=== PATIENT | female | born 1980 | race Caucasian/White ===

== ENCOUNTER 2017-03-15 22:14 | Emergency (ER) | payer BC ==
[~2017-03-15] VITALS: Ht 177.8 cm; Wt 99.8 kg
[2017-03-15 22:47] LABS: BASO # 0.1 x10^3/uL (0.0-0.2); BASO % 1 % (0-3); EOS % 0 % (0-3); HEMATOCRIT 44.2 % (36.0-47.0); HEMOGLOBIN 15.3 g/dL (12.0-15.5); LYMPH # 2.7 x10^3/uL (1.0-4.8); LYMPH % 29 % (24-48); MEAN CORPUSCULAR HEMOGLOBIN 33 pg (25-35); MEAN CORPUSCULAR HGB CONC 35 g/dL (31-37); MEAN CORPUSCULAR VOLUME 96 fL (79-100); MONO % 5 % (0-9); NEUT % 65 % (31-73); PLATELET COUNT 305 x10^3/uL (140-400); RED BLOOD COUNT 4.61 x10^6/uL (3.50-5.40); RED CELL DISTRIBUTION WIDTH 12.2 % (11.5-14.5); WHITE BLOOD COUNT 9.4 x10^3/uL (4.0-11.0)
[2017-03-15 22:58] LABS: CALCIUM 10.2 mg/dL (8.5-10.1); GFR 63.1; POTASSIUM 3.2 mmol/L (3.5-5.1)
[2017-03-15 23:03] LABS: ALBUMIN/GLOBULIN RATIO 1.1 (1.0-1.7); TOTAL BILIRUBIN 0.4 mg/dL (0.2-1.0); TOTAL PROTEIN 7.8 g/dL (6.4-8.2)
[2017-03-15] MEDS ORDERED: CONTRAST GIVEN MC PRN (23:15)
[2017-03-15] MEDS ORDERED: IOHEXOL 300 MG/ML 75 ML VIAL ONE (23:21)
[2017-03-15] MEDS ORDERED: IOHEXOL 300 MG/ML 75 ML VIAL IV ONE (23:30)
[2017-03-15] MEDS ORDERED: IV NORMAL SALINE 1000ML BAG 1,000 ML IV ONE ×2 (23:30)
--- NOTE | 2017-03-15 23:35 | RAD ---
Chest CTA History: Tachycardia Technique: After bolus of intravenous contrast, CT imaging was performed of the chest. Multiplanar reconstruction images to include MIP reconstruction images are submitted. Exposure: One or more of the following individualized dose reduction techniques were utilized for this examination: 1. Automated exposure control 2. Adjustment of the mA and/or kV according to patient size 3. Use of iterative reconstruction technique. Contrast: 75 cc Omnipaque 300 Comparison: None Findings: No central pulmonary embolism is identified, limited evaluation of more distal branches due to poor contrast opacification during exam. There is no pneumothorax or abnormal pericardial or pleural fluid. There is no lobar infiltrate. Major airways are patent. No significant lymphadenopathy is identified of the chest. Thoracic aortic caliber is within normal limits without intraluminal flap. Impression: 1. No central pulmonary embolism is identified, limited evaluation of more distal branches on this exam. Electronically signed by: Puma Giang MD (03/15/2017 11:32 PM) [facility]
[2017-03-16] VITALS: BP 145/91
--- NOTE | 2017-03-16 00:10 | PHYS DOC ---
Past Medical History Past Medical History: Hypothyroid Past Surgical History: Other Additional Past Surgical Histo: LEAP Alcohol Use: Occasionally Drug Use: None Adult General Chief Complaint Chief Complaint: Palpitations HPI HPI 36-year-old female with a history of hypothyroidism now presents to the emergency department complaining of palpitations. Patient states she has not taken any extra doses of her Synthroid in fact she missed her Synthroid dose today. She denies chest pain or pleuritic pain. No productive cough or fever. His no history of arrhythmia or resting tachycardia. Patient has never had a cardiac problem. She did take a supplement this afternoon which included amino acids with a large dose of caffeine. Other than coffee in the morning patient normally does not think any caffeine for the rest of the day. She is otherwise asymptomatic and has not been ill. Review of Systems Review of Systems Constitutional: Denies fever or chills [] Eyes: Denies change in visual acuity, redness, or eye pain [] HENT: Denies nasal congestion or sore throat [] Respiratory: Denies cough or shortness of breath [] Cardiovascular: No additional information not addressed in HPI [] GI: Denies abdominal pain, nausea, vomiting, bloody stools or diarrhea [] : Denies dysuria or hematuria [] Musculoskeletal: Denies back pain or joint pain [] Integument: Denies rash or skin lesions [] Neurologic: Denies headache, focal weakness or sensory changes [] Endocrine: Denies polyuria or polydipsia [] Current Medications Current Medications Current Medications Medications (Trade) Dose Ordered Sig/Rachana Start Time Stop Time Status Last Admin Dose Admin Info (Do NOT chart on this entry -- for MONITORING) 1 each PRN DAILY PRN 03/15/17 23:15 03/17/17 23:14 Iohexol (Omnipaque 300 Mg/ml) 75 ml STK-MED ONCE 03/15/17 23:21 03/15/17 23:22 DC Potassium Chloride (Klor-Con) 40 meq 1X ONCE 03/16/17 00:30 03/16/17 00:31 Sodium Chloride 1,000 ml @ 1,000 mls/hr 1X ONCE 03/15/17 23:30 03/16/17 00:29 03/15/17 23:08 1,000 MLS/HR Allergies Allergies Allergies Coded Allergies Type Severity Reaction Last Updated Verified No Known Drug Allergies 03/15/17 No Physical Exam Physical Exam Well-appearing female no acute distress mild tachycardia clear lungs regular rate and rhythm benign exam Constitutional: Well developed, well nourished, no acute distress, non-toxic appearance. [] HENT: Normocephalic, atraumatic, bilateral external ears normal, oropharynx moist, no oral exudates, nose normal. [] Eyes: PERRLA, EOMI, conjunctiva normal, no discharge. [] Neck: Normal range of motion, no tenderness, supple, no stridor. [] Cardiovascular:Heart rate regular rhythm, no murmur [] Lungs & Thorax: Bilateral breath sounds clear to auscultation [] Abdomen: Bowel sounds normal, soft, no tenderness, no masses, no pulsatile masses. [] Skin: Warm, dry, no erythema, no rash. [] Back: No tenderness, no CVA tenderness. [] Extremities: No tenderness, no cyanosis, no clubbing, ROM intact, no edema. [] Neurologic: Alert and oriented X 3, normal motor function, normal sensory function, no focal deficits noted. [] Psychologic: Affect normal, judgement normal, mood normal. [] Current Patient Data Vital Signs Vital Signs Date Time Temp Pulse Resp B/P (MAP) Pulse Ox O2 Delivery O2 Flow Rate FiO2 03/15/17 22:30 99.3 116 18 158/104 (122) 97 Room Air 99.3 Lab Values Laboratory Tests Test 03/15/17 22:38 White Blood Count 9.4 x10^3/uL (4.0-11.0) Red Blood Count 4.61 x10^6/uL (3.50-5.40) Hemoglobin 15.3 g/dL (12.0-15.5) Hematocrit 44.2 % (36.0-47.0) Mean Corpuscular Volume 96 fL (79-100) Mean Corpuscular Hemoglobin 33 pg (25-35) Mean Corpuscular Hemoglobin Concent 35 g/dL (31-37) Red Cell Distribution Width 12.2 % (11.5-14.5) Platelet Count 305 x10^3/uL (140-400) Neutrophils (%) (Auto) 65 % (31-73) Lymphocytes (%) (Auto) 29 % (24-48) Monocytes (%) (Auto) 5 % (0-9) Eosinophils (%) (Auto) 0 % (0-3) Basophils (%) (Auto) 1 % (0-3) Neutrophils # (Auto) 6.1 x10^3uL (1.8-7.7) Lymphocytes # (Auto) 2.7 x10^3/uL (1.0-4.8) Monocytes # (Auto) 0.4 x10^3/uL (0.0-1.1) Eosinophils # (Auto) 0.0 x10^3/uL (0.0-0.7) Basophils # (Auto) 0.1 x10^3/uL (0.0-0.2) Sodium Level 138 mmol/L (136-145) Potassium Level 3.2 mmol/L (3.5-5.1) L Chloride Level 100 mmol/L (98-107) Carbon Dioxide Level 27 mmol/L (21-32) Anion Gap 11 (6-14) Blood Urea Nitrogen 13 mg/dL (7-20) Creatinine 1.0 mg/dL (0.6-1.0) Estimated GFR (Cockcroft-Gault) 63.1 BUN/Creatinine Ratio 13 (6-20) Glucose Level 114 mg/dL (70-99) H Calcium Level 10.2 mg/dL (8.5-10.1) H Total Bilirubin 0.4 mg/dL (0.2-1.0) Aspartate Amino Transferase (AST) 18 U/L (15-37) Alanine Aminotransferase (ALT) 30 U/L (14-59) Alkaline Phosphatase 80 U/L (46-116) Troponin I Quantitative < 0.017 ng/mL (0.000-0.055) Total Protein 7.8 g/dL (6.4-8.2) Albumin 4.0 g/dL (3.4-5.0) Albumin/Globulin Ratio 1.1 (1.0-1.7) Laboratory Tests 03/15/17 22:38 Laboratory Tests 03/15/17 22:38 EKG EKG EKG with normal sinus tachycardia at 126 left axis deviation no STEMI interpreted by me[] Radiology/Procedures Radiology/Procedures Chest x-ray no acute disease interpreted by me. CTA of the chest negative for PE or pneumonia. [] Course & Med Decision Making Course & Med Decision Making Pertinent Labs and Imaging studies reviewed. (See chart for details) Patient with nonspecific palpitations and mild tachycardia suspected to be secondary to large caffeine ingestion this afternoon. Tachycardia resolved after hydration patient feels improved. She had no chest pain at any time. CTA of the chest negative for PE. Remainder of exam is benign. Incidental finding of mildly low potassium which was supplemented by mouth. Patient were to follow up with PCP for reevaluation and further cardiac workup and treatment as needed. No further workup or intervention indicated at this time. Patient agrees with outpatient follow-up and strict return precautions given [] Dragon Disclaimer Dragon Disclaimer This electronic medical record was generated, in whole or in part, using a voice recognition dictation system. Departure Departure Impression: Primary Impression: Heart palpitations Additional Impressions: Tachycardia Accidental caffeine overdose Dehydration, mild Disposition: 01 HOME, SELF-CARE Condition: IMPROVED Referrals: ROBERT JACKSON MD (PCP) Patient Instructions: Nonspecific Tachycardia Additional Instructions: It appears that your palpitations and mild tachycardia tonight are most likely a result of your significant caffeine ingestion from the your diet supplement pill this evening. Avoid taking caffeine pills in the future. Rest and drink plenty of fluids. Follow-up with your doctor tomorrow for reevaluation and to arrange further workup as needed. Other than mildly low potassium tonight which was supplemented with a pill, your full workup including labs chest x-ray EKG and CT angiogram of your chest were all negative. Return immediately for new severe or worsening symptoms Problem Qualifiers NICOLE MCKEON MD Mar 16, 2017 00:10
[2017-03-16] MEDS ORDERED: POTASSIUM CHLORIDE 20 MEQ TABLET.ER. PO ONE (00:30)
--- NOTE | 2017-03-16 06:24 | EKG ---
[facility] [address] [place] [address] Test Date: 2017-03-15 Test Time: 22:33:36 Pat Name: AUNDREA ALEMAN Department: Room: Gender: F [employer]: : 1980 Requested By: NICOLE MCKEON Order Number: [id number] Reading MD: Elizabeth Ash Measurements Intervals [place] Rate: 126 P: -129 VA: 106 QRS: -27 QRSD: 82 T: 25 QT: 352 QTc: 510 Interpretive Statements SINUS TACHYCARDIA LEFTWARD AXIS OTHERWISE NORMAL EKG Electronically Signed On 03-21-2017 10:46:59 CDT by Elizabeth Ash
--- NOTE | 2017-03-16 07:27 | RAD ---
Portable chest, 03/15/2017: History: Tachycardia The heart size and pulmonary vascularity are normal. The lungs are clear. There is no evidence of pleural fluid. IMPRESSION: No acute cardiopulmonary abnormality is detected.
== END 2017-03-16 00:20 | disposition home or self-care (01) ==
LOC: ER 22:14
DX: T43.611A Poisoning by caffeine, accidental (unintentional), initial encounter (principal); R00.2 Palpitations; R00.0 Tachycardia, unspecified; E86.0 Dehydration; E03.9 Hypothyroidism, unspecified; Y92.89 Other specified places as the place of occurrence of the external cause
CPT/HCPCS: 36415; 71010; 71275; 80053; 84484; 85025; 93005; 96360; 99285; J7030